=== PATIENT | female | born 1930 | race Caucasian/White ===

== ENCOUNTER 2018-10-23 17:09 | Emergency (ER) | payer OTHER ==
--- NOTE | 2018-10-23 17:14 | PDOC ---
Rapid Medical Evaluation Time Seen by Provider: 10/23/18 17:11 Medical Evaluation: Allergies Allergy/AdvReac Type Severity Reaction Status Date / Time No Known Allergies Allergy Verified 09/02/15 16:00 10/23/18 17:11 I have performed a brief exam on this patient. CC: Mechanical fall. On ASA. No AC. Denies LOC. PE: hematoma to left forehead. No c-spine tenderness. Orders: CTH, CT c-spine The patient will proceed to the ER for further evaluation. Discharge Disposition - Diagnosis Fall - Referrals - Patient Instructions - Post Discharge Activity
[2018-10-23 17:15] VITALS: BP 156/72; PULSE 95; TEMP 98.1; BMI 28.3
--- NOTE | 2018-10-23 18:28 | PDOC ---
History of Present Illness - General Chief Complaint: Injury Stated Complaint: FALL Time Seen by Provider: 10/23/18 17:11 History Source: Patient, Care Provider (daughter) - History of Present Illness Initial Comments: 10/23/18 18:34 88-year-old female status post trip and fall complaining of knee pain, right shoulder pain,hit head with a frontal hematoma. Denies LOC, nausea, vomiting, Past History - Past Medical History Allergies/Adverse Reactions: Allergies Allergy/AdvReac Type Severity Reaction Status Date / Time No Known Allergies Allergy Verified 10/23/18 17:15 Home Medications: Ambulatory Orders Albuterol Sulfate Inhaler - [Ventolin HFA Inhaler -] 1 - 2 inh PO Q4H PRN Levothyroxine [Synthroid -] 50 mcg PO DAILY 10/02/14 Valsartan 160 mg PO DAILY 10/02/14 Vitamin B Complex 1 each PO DAILY 10/02/14 Cancer: Yes (rectal) Cardiac Disorders: Yes COPD: No HTN: Yes Thyroid Disease: Yes - Surgical History Abdominal Surgery: Yes (rectal) - Suicide/Smoking/Psychosocial Hx Smoking History: Never smoked Information on smoking cessation initiated: No Hx Alcohol Use: No Drug/Substance Use Hx: No Substance Use Type: None Hx Substance Use Treatment: No Review of Systems - Review of Systems Able to Perform ROS?: Yes Is the patient limited Kinyarwanda proficient: No Constitutional: No: Symptoms Reported, See HPI, Chills, Diaphoresis, Fever, Loss of Appetite, Malaise, Night Sweats, Weakness, Weight Stable, Unintentional Wgt. Loss, Unexplained wgt Loss, Other Musculoskeletal: Yes: Other (shoulder pain, knee pain) Neurological: Yes: Headache *Physical Exam - Vital Signs Last Vital Signs Temp Pulse Resp BP Pulse Ox 98.1 F 95 H 17 156/72 97 10/23/18 17:13 10/23/18 17:13 10/23/18 17:13 10/23/18 17:13 10/23/18 17:13 - Physical Exam General Appearance: Yes: Appropriately Dressed HEENT: positive: Other (hematoma to right forehead. ) Cardiovascular: positive: Regular Rhythm, Regular Rate Musculoskeletal: positive: Other (full rom to right shoulder + crepitus, abrasion to left knee. full rom to left knee no edema) Extremity: positive: Normal Capillary Refill, Normal Inspection, Normal Range of Motion Integumentary: positive: Normal Color, Dry, Warm Neurologic: positive: car dryer II-XII NML intact, Fully Oriented, Alert, Normal Mood/ Affect, Normal Response, Motor Strength 5/5 Progress Note - Progress Note Progress Note: A: head injury; concussion? right shoulder pain; left knee injury P: headt ct/ c- spine xray: no acute fracture tetanus tylenol advised daughter for neurolog follow up for post concussion eval ortho follow up prn *DC/Admit/Observation/Transfer Diagnosis at time of Disposition: Fall Qualifiers: Encounter type: initial encounter Qualified Code(s): W19.XXXA - Unspecified fall, initial encounter Head trauma Qualifiers: Encounter type: initial encounter Qualified Code(s): S09.90XA - Unspecified injury of head, initial encounter Right shoulder pain Qualifiers: Chronicity: acute Qualified Code(s): M25.511 - Pain in right shoulder Concussion Qualifiers: Encounter type: initial encounter Loss of consciousness presence/duration: without LOC Qualified Code(s): S06.0X0A - Concussion without loss of consciousness, initial encounter - Discharge Dispostion Disposition: HOME - Referrals Referrals: Leopoldo Lazaro MD [Staff Physician] - Call tomorrow Yang Segura MD [Staff Physician] - Call tomorrow - Patient Instructions Printed Discharge Instructions: How to Prevent Falls Additional Instructions: rest and relax as much as possible keep right arm in sling apply ice to forehead and right shoulder - Post Discharge Activity
[2018-10-23] MEDS ORDERED: DIPHTH,PERTUSS(ACELL),TET 0.5 ML DISP.SYRIN IM ONE ×2 (18:29→18:42)
--- NOTE | 2018-10-23 18:40 | PDOC ---
*Physical Exam - Vital Signs Last Vital Signs Temp Pulse Resp BP Pulse Ox 98.1 F 95 H 17 156/72 97 10/23/18 17:13 10/23/18 17:13 10/23/18 17:13 10/23/18 17:13 10/23/18 17:13 Medical Decision Making - Medical Decision Making 10/23/18 20:04 Ms Lopez is an 88 yo F presenting s/p a fall from standing height Pt tripped (did not have chest pain or shortness of breath) She rolled forward, struck her forehead No LOC no Amnesia Pt is ambulatory with a steady gait Complains of right shoulder pain, is able to range her shoulder with no obvious deformity Ct head - No acute intracranial pathology CT cervical spine - Degenerative arthritis 10/23/18 20:13 Xrays demonstrate no fracture or dislocation Widening of the glenohumeral joint - AC separation Agree with plan per BIPIN Camara *DC/Admit/Observation/Transfer Diagnosis at time of Disposition: Head trauma, Right shoulder pain, Concussion Fall Qualifiers: Encounter type: initial encounter Qualified Code(s): W19.XXXA - Unspecified fall, initial encounter - Referrals Referrals: Leopoldo Lazaro MD [Staff Physician] - Call tomorrow Yang Segura MD [Staff Physician] - Call tomorrow - Patient Instructions Printed Discharge Instructions: How to Prevent Falls Additional Instructions: rest and relax as much as possible keep right arm in sling apply ice to forehead and right shoulder - Post Discharge Activity
[2018-10-23] MEDS ORDERED: ACETAMINOPHEN 325 MG TABLET (FP) PO ONE (19:52)
[2018-10-23] MEDS ORDERED: ACETAMINOPHEN 325 MG TABLET (FP) ONE (19:55)
== END 2018-10-23 20:22 | disposition home or self-care (01) ==
LOC: JER 17:09
PROC: 3E0234Z Introduction of Serum, Toxoid and Vaccine into Muscle, Percutaneous Approach (ICD-10-PCS; principal; 2018-10-23)
DX: M25.511 Pain in right shoulder (principal); S06.0X0A Concussion without loss of consciousness, initial encounter; I10 Essential (primary) hypertension; Z85.048 Personal history of other malignant neoplasm of rectum, rectosigmoid junction, and anus; E07.9 Disorder of thyroid, unspecified
CPT/HCPCS: 70450-TC; 72125-TC; 73030-TC-RT-FY; 73560-TC-LT-FY; 90715; 99282-25